=== PATIENT | female | born 1965 | race Caucasian/White ===

== ENCOUNTER 2020-11-17 17:25 | Emergency (ER) | payer OTHER ==
[~2020-11-17] VITALS: Ht 162.6 cm; Wt 90.7 kg
[~2020-11-17 17:25] MED LIST: ANTIVERT25 MG PO; CALCIUM + D SO1 EACH PO; CHILDREN VITAM1 EACH PO; CYMBALTA60 MG PO; LANSOPRAZOLE30 MG PO; NORCO 5-325 TA1 EACH PO; PRILOSEC OTC20 MG PO; PRILOSEC20 MG PO; SUMATRIPTAN5 MG NAS; ZOFRAN ODT4 MG SL; ZYRTEC10 M3 PO
[2020-11-17] MEDS ORDERED: PROGESTERONE200 MG PO (17:39)
[2020-11-17] MEDS ORDERED: PEPCID20 MG PO (17:40)
--- NOTE | 2020-11-18 20:59 | EKG ---
[facility] [address] [facility] [place], [place] [address] Signed Normal sinus rhythm Normal ECG No previous ECGs available Confirmed by YONATHAN BUENROSTRO DO ([id number]) on 11/18/2020 8:58:55 PM Electronically Signed By: YONATHAN BUENROSTRO DO 11/18/202058 PATIENT NAME: KENDELL ALMANZAR Electrocardiogram DATE OF : 67 PHYSICIAN: YONATHAN BUENROSTRO DO REPORT #: [id number] REPORT IS CONFIDENTIAL AND NOT TO BE RELEASED WITHOUT AUTHORIZATION
== END 2020-11-17 20:51 | disposition home or self-care (01) ==
LOC: ED 17:25
DX: U07.1 COVID-19 (principal); G43.909 Migraine, unspecified, not intractable, without status migrainosus; Z79.899 Other long term (current) drug therapy; Z88.8 Allergy status to other drugs, medicaments and biological substances
CPT/HCPCS: 71045; 80053; 83735; 84484; 84703; 85025; 93005; 93010; 94640; 94664; 99284-25; C9803; U0003

== ENCOUNTER 2022-04-26 00:20 | Emergency (ER) | payer SELFPAY ==
[~2022-04-26] VITALS: Ht 162.6 cm; Wt 104.0 kg
[~2022-04-26 00:20] MED LIST changes: +PEPCID20 MG PO; +PROGESTERONE200 MG PO
== END 2022-04-26 01:34 | disposition home or self-care (01) ==
LOC: ED 00:20
DX: T17.298A Other foreign object in pharynx causing other injury, initial encounter (principal); G43.909 Migraine, unspecified, not intractable, without status migrainosus; Z79.899 Other long term (current) drug therapy; Z88.8 Allergy status to other drugs, medicaments and biological substances; W45.8XXA Other foreign body or object entering through skin, initial encounter
CPT/HCPCS: 71046; 99283-25

== ENCOUNTER 2024-02-25 06:37 | Day surgery (SDC) | payer OTHER ==
[~2024-02-25] VITALS: Ht 154.9 cm; Wt 107.7 kg
[~2024-02-25 06:37] MED LIST changes: +MIDAZOLAM HCL 5 MG/5 ML VIAL IV PRN; +OMEPRAZOLE20 MG PO; +fentaNYL citrate 100 MCG/2 ML VIAL IV PRN
[2024-02-25] MEDS ORDERED: fentaNYL citrate 100 MCG/2 ML VIAL ONE (06:46)
[2024-02-25] MEDS ORDERED: MIDAZOLAM HCL 5 MG/5 ML VIAL ONE (06:46)
[2024-02-25 06:49] VITALS: BP 131/83
[2024-02-25] MEDS ORDERED: ZYRTEC10 MG PO (06:56)
[2024-02-25] MEDS ORDERED: MAG GLYCINATE100 MG PO (06:56)
[2024-02-25] MEDS ORDERED: BUPROPION XL150 MG PO (06:57)
[2024-02-25] MEDS ORDERED: IBLOOD GLUCOSE TEST STRIP 1 EA TEST VI PRN (07:00)
[2024-02-25] MEDS ORDERED: LACTATED RINGER'S 1,000 ML IV SCH (07:00)
[2024-02-25] MEDS ORDERED: LIDOCAINE HCL 1% 5 ML SDV INJ ONE (07:00)
--- NOTE | 2024-02-25 07:13 | NUR ---
VISITED DURING SPIRITUAL CARE ROUNDS. PT SUPPORTED BY MACHINE TRACER IN ROOM; BOTH IN OVERALL GOOD SPIRITS, DENY IMMEDIATE NEEDS. MANAGER LOGISTIC PROVIDED SUPPORTIVE PRESENCE, HOSPITALITY, PRAYER, FACILITATED INTERACTION WITH THERAPY ANIMAL.
[2024-02-25 08:53] VITALS: BP 114/69
--- NOTE | 2024-02-25 09:09 | NUR ---
02/25/24 0909 Eri Chandra 0814 PT ARRIVED IN PACU SLEEPY. ABD SOFT. 0830 RESTING. REU. 0845 SITTING UP IN BED SIPPING ON WATER. DC INSTRUCTIONS GIVEN. ALL QUESTIONS ANSWERED. 0900 LEFT VIA W/C.
--- NOTE | 2024-02-26 11:31 | OR ---
[facility] [address] [place], [place] [address] Signed DATE OF OPERATION: 02/25/2024 SURGEON: Bharath Hair MD PREOPERATIVE DIAGNOSIS: Colon screening; history of clinical diagnosis of acute diverticulitis. POSTOPERATIVE DIAGNOSIS: Minimal sigmoid diverticulosis. PROCEDURE: Total colonoscopy to cecum. ANESTHESIA: Intravenous sedation; fentanyl 150 mcg, Versed 6 mg. INDICATION: This 58-year-old white woman is a patient of [facility] Duna[facility]. She is referred for colon screening. She has been referred for this in the past, though canceled her visit previously. She has had at least one episode and possibly more of left lower abdominal pain, clinically considered likely to be diverticulitis. She was treated with antibiotics for this by Dr. Johnston. She has undergone laparoscopic band placement in 2009 and had no symptoms related to that. A pelvic ultrasound performed on June 22, 2023 for "pelvic pain" was essentially normal. She has had no CT scan to affirm or refute the idea of diverticulitis. She is admitted at this time to undergo colonoscopy for screening. She understands the risk of bleeding, infection, and perforation. FINDINGS: The prep was excellent. Complete colonoscopy was undertaken of the cecum with full intubation of the cecum. She had a few scattered diverticula of the sigmoid, but no polyps, stricture, neoplasm, colitis, or other abnormality. PROCEDURE IN DETAIL: The patient was brought to the endoscopy suite and placed in lateral decubitus position, given intravenous sedation to the point of slurred speech and nystagmus. Digital rectal examination was normal. An Olympus video colonoscope was passed in the rectum and manipulated throughout the colon ultimately intubating the cecum, ileocecal valve and appendiceal orifice were normal. Scope was withdrawn from that point and examination throughout showed no sign Electronically Signed By: BHARATH HAIR MD 02/26/24 1131 PATIENT NAME: KENDELL ALMANZAR OPERATIVE REPORT DATE OF : 67 REPORT #: [id number] PHYSICIAN: BHARATH HAIR MD PCP: LITZY VELASQUEZ REPORT IS CONFIDENTIAL AND NOT TO BE RELEASED WITHOUT AUTHORIZATION [facility] [address] [place] [id number] Signed of abnormality other than a few scattered diverticula of the sigmoid and left colon. Retroflexed view of the rectum was normal. Scope was removed. The patient was taken to the recovery room in good condition. CONCLUDING DIAGNOSIS: Diverticular changes accounting for probable history of acute diverticulitis. PLAN: Recommend repeat colonoscopy in 10 years, sooner if symptoms should warrant. Would recommend high-fiber diet. She will return to the ongoing care of CARRI Dunaway. MD JASSON Hough/JADA /[id number] cc: Litzy Velasquez PA-C Copies: LITZY VELASQUEZ PAC ~ Electronically Signed By: BHARATH HAIR MD 02/26/24 1131 PATIENT NAME: KENDELL ALMANZAR OPERATIVE REPORT DATE OF : 67 REPORT #: [id number] PHYSICIAN: BHARATH HAIR MD PCP: LITZY VELASQUEZ PAC REPORT IS CONFIDENTIAL AND NOT TO BE RELEASED WITHOUT AUTHORIZATION
== END 2024-02-25 09:00 | disposition home or self-care (01) ==
LOC: OPS 06:37 → DS 06:37 → OPS 07:30 → DS 07:30 → OPS 09:00
PROVIDERS: ATTEND Surgery
PROC: 0DJD8ZZ Inspection of Lower Intestinal Tract, Via Natural or Artificial Opening Endoscopic (ICD-10-PCS; principal; 2024-02-25 07:30)
DX: Z12.11 Encounter for screening for malignant neoplasm of colon (principal); K57.30 Diverticulosis of large intestine without perforation or abscess without bleeding; K21.9 Gastro-esophageal reflux disease without esophagitis; Z79.899 Other long term (current) drug therapy; Z87.19 Personal history of other diseases of the digestive system; Z98.84 Bariatric surgery status
CPT/HCPCS: 99153; G0500; J2250; J3010; J7121